=== PATIENT | male | born 1975 | race Caucasian/White ===

== ENCOUNTER 2022-05-02 11:07 | Observation (INO) | payer OTHER, SELFPAY ==
[2022-05-02] VITALS (31 sets, daily range): BP systolic 135–166; BP diastolic 78–114; PULSE 74–123; RESP 10–22; TEMP 36.6–36.9; O2SAT 89–100; BMI 37.6
--- NOTE | 2022-05-02 | ECHO_ITS ---
Patient Info Name: Zackery Rod Age: 47 years : 1975 Gender: Male Ht: 72 in Wt: 224 lbs BSA: 2.30 m2 HR: 117 bpm BP: 149 / 99 mmHg Heart Rhythm: Sinus Rhythm Technical Quality: Fair Exam Date: 05/02/2022 1:20 PM Exam Location: [facility] Pulmonary Patient Status: Emergency Admit Date: 05/02/2022 Staff Ordering Physician: Lorene Vick NP Pick Up: Kelli Gutierrez RDCS Attending Provider: Nader Guevara APRN Referring Physician: Nava PIÑA; Exam Type: CA echo dop color flow w con Study Info Indications - q waves on ekg Complete two-dimensional, color flow and Doppler transthoracic echocardiogram is performed with contrast to opacify the left ventricle and to improve the deliniation of the left ventricle endocardial borders. Contrast/Agitated Saline Contrast/Ag. Saline: Definity Amount: 3.00 ml Administered By: Kelli Gutierrez RDCS Existing IV Access: Yes IV Access Condition: patent with no signs of infiltration Summary 1. Normal left ventricular size and contractility. 2. No regional wall motion abnormalities. 3. Grade 1 diastolic noncompliance. 4. Mild left atrial enlarged. Left Ventricle Left ventricular chamber dimension is normal. Left ventricular systolic function is normal, estimated at 60-65%. The left ventricular diastolic function is grade I diastolic dysfunction. Right Ventricle Right ventricular chamber dimension is normal. Left Atria Left atrial chamber dimension is mildly enlarged. Right Atria Right atrial chamber dimension is normal. Aortic Valve The aortic valve is normal. Pulmonic Valve The pulmonic valve is not well visualized. Mitral Valve The mitral valve has normal leaflets. Tricuspid Valve The tricuspid valve leaflets are normal. Pericardium/Pleural The pericardium appears normal. Aorta The aortic root size at the sinus of Valsalva is normal. Left Ventricular Outflow Tract Name Value Normal LVOT 2D LVOT Diameter 2.01 cm LVOT Doppler LVOT Peak Velocity 106.12 cm/s LVOT Peak Gradient 5 mmHg LVOT Mean Gradient 2 mmHg LVOT VTI 17.38 cm LVOT VTI/AV VTI Ratio 0.85 LVOT Stroke Volume 55.22 ml LVOT CO 4.31 l/min LVOT CI 1.88 L/min/m2 Mitral Valve Name Value Normal MV Doppler MV Decel [place] 388.63 cm/s2 MV PHT 0 s MV Area (PHT) 5.69 cm2 4.00-5.00 MV Diastolic Function MV E Peak Velocity 51.82 cm/s
--- NOTE | ~2022-05-02 | XR_ITS ---
EXAMINATION: XR chest 2V 05/02/2022 11:35 INDICATION: Chest pressure PROCEDURE: 2 view chest COMPARISON: No prior studies for comparison. FINDINGS: The lungs are clear. The cardiomediastinal silhouette is within normal limits. There are no pleural effusions. There is no pneumothorax suspected. IMPRESSION: 1: NO ACUTE CARDIOPULMONARY DISEASE. Reviewed, dictated and finalized at location A.
--- NOTE | ~2022-05-02 | NM_ITS ---
EXAMINATION: NM oni stress w perfusion DATE: 05/03/2022 14:59 INDICATION: Chest pain TECHNIQUE: Rest images were obtained following intravenous administration of 9.3 mCi Tc99m tetrofosmi n (Myoview). The patient was infused intravenously with Lexiscan (Regadenoson). Then, 27.7 mCi Tc99m tetrofosmin (Myoview) was administered intravenously, and stress images were obtained. Data was recon structed into short axis and horizontal and vertical long axis SPECT images. Gated SPECT images were also obtained. COMPARISON: None. FINDINGS: There is no definite reversible or fixed perfusion abnormality to suggest ischemia or infar ction. There is normal left ventricular chamber size, wall motion and ejection fraction. Left ventr icular ejection fraction measures >70%. IMPRESSION: 1. Normal myocardial perfusion at rest and during stress. 2. Left ventricular ejection fraction measuring >70%. Reviewed, dictated and finalized at location A.
--- NOTE | 2022-05-02 11:11 | ECG_ITS ---
Measurements Intervals [place] Rate: 85 P: 38 MI: 192 QRS: -4 QRSD: 106 T: 17 QT: 358 QTc: 427 Interpretive Statements SINUS RHYTHM DELAYED PRECORDIAL R/S TRANSITION CONSIDER INFERIOR INFARCT, AGE INDETERMINATE BASELINE ARTIFACT- I, II, III, AVR, AVL, V1 ABNORMAL ECG Electronically Signed On 05-02-2022 12:10:29 CDT by Haresh Weaver D.O.
--- NOTE | 2022-05-02 11:23 | ED.CHESTPAIN ---
HPI - Chest Pain General Chief Complaint: Chest Pain Stated Complaint: chest pressure since saturday Time Seen by Provider: 05/02/22 11:20 History of Present Illness HPI narrative: 47-year-old male presents to the emergency room for evaluation of left-sided chest pressure that he has intermittently had since Saturday. Patient states he develops a light chest pressure daily, lasts about 1 to 2 hours. Pain usually starts when he is at rest and is not exacerbated by any outside forces. Patient denies any shortness of breath or difficulty breathing. Patient denies taking any medications to alleviate his symptoms. Patient denies any near syncope, nausea or vomiting or radiating pain. Related Data Home Medications Medication Instructions Recorded Confirmed metformin 1,000 mg tablet tablet 2XD 05/02/22 metoprolol tartrate 50 mg tablet tablet 2XD 05/02/22 quinapril 20 tablet 1XD 05/02/22 mg-hydrochlorothiazide 25 mg tablet semaglutide 0.25 mg or 0.5 mg (2 ea subcut WEEKLY 05/02/22 mg/1.5 mL) subcutaneous pen injector ([employer]) Allergies Allergy/AdvReac Type Severity Reaction Status Date / Time No Known Allergies Allergy Verified 05/02/22 11:31 Review of Systems Review of Systems: CONSTITUTIONAL: Denies fever, chills, or sweats. EYES: Denies visual changes, redness, or discharge. ENT: Denies rhinorrhea, congestion, sore throat, or otalgia. CARDIOVASCULAR: Reports chest pressure RESPIRATORY: Denies cough or dyspnea. GASTROINTESTINAL: Denies abdominal pain, nausea, vomiting, or diarrhea. GENITOURINARY: Denies dysuria or hematuria. SKIN: Denies rash or itching. MUSCULOSKELETAL: Denies back pain, joint pain, or myalgia. NEUROLOGIC: Denies headache, numbness, dizziness, or weakness. PSYCHIATRIC: Denies anxiety or depression. Exam Narrative: GENERAL: Well-appearing, well-nourished, no physical limitations, and in no acute distress. HEAD: Normocephalic, atraumatic. EYES: Conjunctivae normal, PERRLA and EOMI. CHEST: Clear to auscultation. No respiratory distress. No wheezes rales or rhonchi. No tenderness. HEART: Regular rate and rhythm. No murmur heard. Normal peripheral pulses. BACK: No CVA tenderness; No cervical/thoracic/lumbar tenderness, step-offs, bony abnormality; FROM EXTREMITIES: Normal range of motion. No edema. No clubbing or cyanosis SKIN: Warm, dry, no rash. No noted wounds NEURO: No focal deficits. Alert and oriented x3. MAEW. CN's II-XI intact bilaterally, normal gait PSYCH: Cooperative. Normal mood and affect. Course Vital Signs Vital signs: Vital Signs Temperature 36.8 C 05/02/22 11:09 Pulse Rate 81 05/02/22 11:09 Respiratory Rate 18 05/02/22 11:09 Blood Pressure 160/96 H 05/02/22 11:09 Pulse Oximetry 100 05/02/22 11:09 Temperature 36.6 C 05/02/22 11:14 Pulse Rate 117 H 05/02/22 11:14 Respiratory Rate 18 05/02/22 11:14 Blood Pressure 159/100 H 05/02/22 11:14 Pulse Oximetry 98 05/02/22 11:26 Oxygen Delivery Room Air 05/02/22 11:26 MDM - Chest Pain MDM Narrative Medical decision making narrative: 47-year-old male presented the emergency room for evaluation of chest pain. Exam shows no evidence of volume overload. EKG shows no signs of acute ischemia however it does show an old injury in the inferior leads. Initial troponin was negative. Chest x-ray shows no evidence of pneumothorax, or pneumonia. Heart score is a 5, so plan to admit patient for patient Lab Data Result diagrams: 05/02/22 11:22 05/02/22 11:22 Labs: Lab Results 05/02/22 05/02/22 05/02/22 Range/Units 11:21 11:22 11:22 WBC 8.2 (4.5-10.0) K/mm3 RBC 5.45 (4.6-6.20) M/mm3 Hgb 15.4 (14.0-18.0) g/dL Hct 45.0 (42.0-52.0) % MCV 82.6 (80-100) fl MCH 28.3 (26-34) pg MCHC 34.2 (32-36) g/dl RDW 12.5 (11.5-14.5) % Plt Count 277 (150-375) k/mm3 MPV 8.8 (7.4-10.4) fl Immature Gran % (Auto) 0.2 (0-0.5)
[2022-05-02 11:26] LABS: Basophils Absolute Auto 0.1 K/mm3 (0.0-0.1); Basophils Percent Auto 0.6 % (0.2-1.2); Eosinophils Absolute Auto 0.3 K/mm3 (0-0.3); Eosinophils Percent Auto 3.5 % (0-4.4); Hemoglobin 15.4 g/dL (14.0-18.0); Immature Granulocyte Absolute 0.02 K/mm3 (0.00-0.031); Immature Granulocyte Percent A 0.2 % (0-0.5); Lymphocytes Absolute Auto 2.56 K/mm3 (0.9-3.2); Lymphocytes Percent Auto 31.1 % (18.3-44.2); Mean Corpuscular HGB Conc 34.2 g/dl (32-36); Mean Corpuscular Hemoglobin 28.3 pg (26-34); Mean Corpuscular Volume 82.6 fl (80-100); Mean Platelet Volume 8.8 fl (7.4-10.4); Monocytes Absolute Auto 0.5 K/mm3 (0.1-0.6); Monocytes Percent Auto 6.4 % (2.6-8.5); Neutrophils Absolute Auto 4.8 K/mm3 (1.3-6.7); Neutrophils Percent Auto 58.2 % (45.5-73.1); Platelet Count Result 277 k/mm3 (150-375); Red Blood Count 5.45 M/mm3 (4.6-6.20); Red Cell Distribution Width 12.5 % (11.5-14.5); White Blood Count 8.2 K/mm3 (4.5-10.0)
[2022-05-02 11:36] LABS: Alanine Aminotransferase 51 U/L (6-50); Alkaline Phosphatase 85 U/L (38-126); Anion Gap 10 mmol/L (8-16); Aspartate Amino Transferase 36 U/L (17-59); Bilirubin,Total 0.6 mg/dL (0.2-1.3); Blood Urea Nitrogen 11 mg/dL (9-20); Calcium 9.4 mg/dL (8.4-10.2); Carbon Dioxide 27 mmol/L (22-30); Chloride 98 mmol/L (98-107); Estimated CRCL calculation 136 ml/min; Estimated Glomerular Filt Rate > 60; Glucose 125 mg/dL (65-110); Lipase 185 U/L (23-300); Potassium 3.5 mmol/L (3.4-5.0); Sodium 135 mmol/L (137-145)
[2022-05-02 11:37] LABS: INR 0.9; Prothrombin Time 11.9 Seconds (11.1-14.7)
[2022-05-02 11:38] LABS: Partial Thromboplastin Time 27.9 SECONDS (22.3-36.8)
[2022-05-02 11:47] LABS: Troponin I < 0.012 ng/mL (0.000-0.034)
[2022-05-02] MEDS: ASPIRIN 81 MG CHEWABLE TABLET 324 MG PO (11:52)
--- NOTE | 2022-05-02 13:01 | PM.IMHP ---
H&P: HPI History of Present Illness Date/Time: 05/02/22 12:40 Chief Complaint: Chest pain Narrative: This is a 47-year-old male patient who has a history of hypertension, hyperlipidemia, obesity, and diabetes. The patient stated he was recently switched to a different cholesterol medicine however due to insurance reasons he was not able to get it. The patient stated that his father at the age of 53 from a heart attack. The patient stated that his chest pain started this past Saturday and comes and goes. He states that it feels like a pressure to the left upper chest it does not radiate up his neck or down his arm. He denied any nausea or vomiting. He denied any fever chills or cough. His chest pressure usually last 1-2 hours. Patient did not taken aspirin at home. He has not had any previous stress test or cardiac catheterization. He states that the discomfort improves when he lays down. When he gets up and walks he become short of breath and has a chest pain. His blood pressure is elevated today and he stated that he did take his blood pressure medicine. He stated that is usually under control. He also stated that his diabetes is usually under control and that his last A1c was around 7 something. He does not have a insurance job titles. The patient is being admitted to observation status on the date of service of 05/02/2022. Review of Systems Review of Systems: All systems reviewed & are unremarkable except as noted in HPI and below Constitutional: Constitutional: Reports as per HPI and Reports no additional constitutional complaints Eyes: Eyes: Reports as per HPI and Reports no additional eye complaints ENT: Reports system reviewed and no additional complaints, except as documented and Reports Normal hearing present Cardiovascular: Cardiovascular: Reports no additional cardiovascular complaints Respiratory: Respiratory: Reports no additional respiratory complaints and Reports no additional respiratory complaints Gastrointestinal: Gastrointestinal: Reports as per HPI and Reports no additional gastrointestinal complaints Musculoskeletal: Musculoskeletal: Reports no additional musculoskeletal complaints Integumentary/Breasts: Skin/Breast: Reports system reviewed and no additional complaints, except as docu and Reports as per HPI Neurologic: Reports system reviewed and no additional complaints, except as documented, Reports as per HPI and Reports Normal hearing present Psychiatric: Psychiatric: Reports no additional psychiatric complaints and Reports as per HPI Endocrine: Endocrine: Reports no additional endocrine complaints Hematologic/Lymphatic: Hematologic/Lymphatic: Reports no additional hematologic/lymphatic complaints Allergic/Immunologic: Allergic/Immunologic: Reports no additional allergic/immunologic complaints [facility] Family History Family History (Updated 05/02/22 @ 15:08 by Lorene Vick NP) Father Acute myocardial infarction Diabetes mellitus Mother Dementia Diabetes mellitus Social History Social History (Updated 05/02/22 @ 15:07 by Lorene Vick NP) Social History: The patient is single does not have any children. Patient works from home for [employer]. The patient desires to be a full code. The patient is single and lives home alone. He does not smoke or use alcohol. No illicit drugs. Code status full code Meds Home Medications and Allergies Home Medications Medication Instructions Recorded Confirmed Type metformin 1,000 mg tablet tablet 2XD 05/02/22 History metoprolol tartrate 50 mg tablet tablet 2XD 05/02/22 History quinapril 20 tablet 1XD 05/02/22 History mg-hydrochlorothiazide 25 mg tablet semaglutide 0.25 mg or 0.5 mg (2 ea subcut WEEKLY 05/02/22 History mg/1.5 mL) subcutaneous pen injector (Ozempic) Allergies Allergy/AdvReac Type Severity Reaction Status Date / Time No Known Allergies Allergy Verified 05/02/22 11:31 Vital Signs Vital
[2022-05-02] MEDS: METOPROLOL TARTRATE 50 MG TAB PO (13:10)
--- NOTE | 2022-05-02 13:17 | PC.NURSE ---
blood glucose was 141 at 1316
[2022-05-02 13:18] LABS: Glucose Point of Care 141 mg/dl (65-105)
[2022-05-02 13:39] LABS: SARS-CoV-2 RNA PCR Negative
[2022-05-02] MEDS: PERFLUTREN LIPID MICROSPHERES 1.5 ML VIAL DILUTED TO 10 ML TOTAL VOLUME IV PUSH (13:52)
--- NOTE | 2022-05-02 13:53 | IVDEFINITY ---
Prior to administration of IV Definity the patient was educated on the risks and benefits of the imaging enhancing agent including potential adverse side effects. The patient verbalized understanding. Allergies were verified. No exclusion criteria were identified and at least one of the following inclusion criteria were met: 1) physician request, 2) patient technically difficult to image (per the [place] [employer]ocardi[employer] guidelines of two or more segments not discernable within the apical view), or 3) questionable left ventricular function. ?
[2022-05-02 14:41] LABS: Troponin I < 0.012 ng/mL (0.000-0.034)
[2022-05-02 16:09] LABS: Glucose Point of Care 117 mg/dl (65-105)
[2022-05-02] MEDS: SODIUM CHLORIDE 0.9% IV 1,000 ML 125 ML IV CONT ×2 (16:52→20:55)
--- NOTE | 2022-05-02 17:20 | PC.NURSE ---
This patient, Zackery Rod, was admitted to IMU Room 213-01. Patient/family oriented to hospital policies and general routines including ID bracelet, bed and alarms, visiting hours, pain management, procedures, bathroom and other care routines, personal items, smoking policy, room service/diet, and visiting hours. Information on how to activate the Rapid Response Team has been discussed. Patient/Family are encouraged to report perceived risks to care and to ask questions if they do not understand what they are told or what they should do.
[2022-05-02 17:39] LABS: Troponin I < 0.012 ng/mL (0.000-0.034)
[2022-05-02 19:38] LABS: Glucose Point of Care 189 mg/dl (65-105)
[2022-05-02] MEDS: METOPROLOL TARTRATE 50 MG TAB BY MOUTH (20:55)
[2022-05-02] MEDS: ACETAMINOPHEN 325 MG TABLET 650 MG PO (23:39)
[2022-05-03] VITALS (13 sets, daily range): BP systolic 130–147; BP diastolic 82–93; PULSE 64–91; RESP 18–23; TEMP 36.2–36.9; O2SAT 95–99
[2022-05-03 05:37] LABS: Basophils Absolute Auto 0.1 K/mm3 (0.0-0.1); Basophils Percent Auto 0.7 % (0.2-1.2); Eosinophils Absolute Auto 0.4 K/mm3 (0-0.3); Eosinophils Percent Auto 4.9 % (0-4.4); Hematocrit 38.4 % (42.0-52.0); Immature Granulocyte Absolute 0.03 K/mm3 (0.00-0.031); Immature Granulocyte Percent A 0.4 % (0-0.5); Lymphocytes Absolute Auto 2.76 K/mm3 (0.9-3.2); Lymphocytes Percent Auto 36.4 % (18.3-44.2); Mean Corpuscular HGB Conc 33.9 g/dl (32-36); Mean Corpuscular Hemoglobin 28.2 pg (26-34); Mean Corpuscular Volume 83.3 fl (80-100); Mean Platelet Volume 8.9 fl (7.4-10.4); Monocytes Absolute Auto 0.5 K/mm3 (0.1-0.6); Monocytes Percent Auto 6.6 % (2.6-8.5); Neutrophils Absolute Auto 3.9 K/mm3 (1.3-6.7); Platelet Count Result 241 k/mm3 (150-375); Red Blood Count 4.61 M/mm3 (4.6-6.20); Red Cell Distribution Width 12.5 % (11.5-14.5); White Blood Count 7.6 K/mm3 (4.5-10.0)
[2022-05-03 05:53] LABS: Alanine Aminotransferase 42 U/L (6-50); Alkaline Phosphatase 63 U/L (38-126); Anion Gap 7 mmol/L (8-16); Aspartate Amino Transferase 32 U/L (17-59); Bilirubin,Total 0.6 mg/dL (0.2-1.3); Blood Urea Nitrogen 11 mg/dL (9-20); Calcium 8.5 mg/dL (8.4-10.2); Carbon Dioxide 26 mmol/L (22-30); Chloride 104 mmol/L (98-107); Estimated CRCL calculation 151 ml/min; Estimated Glomerular Filt Rate > 60; Glucose 110 mg/dL (65-110); Lipase 174 U/L (23-300); Magnesium 1.6 mg/dL (1.6-2.3); Potassium 3.4 mmol/L (3.4-5.0); Sodium 137 mmol/L (137-145)
[2022-05-03 07:15] LABS: Glucose Point of Care 141 mg/dl (65-105)
[2022-05-03] MEDS: SODIUM CHLORIDE 0.9% IV 1,000 ML 125 ML IV CONT (07:32)
[2022-05-03 07:58] LABS: Hemoglobin A1C 6.8 % (<5.7)
--- NOTE | 2022-05-03 08:02 | EST_ITS ---
Patient Info Name: Zackery Rod Age: 47 years : 1975 Gender: Male Ht: 72 in Wt: 224 lbs BSA: 2.30 m2 HR: 70 bpm BP: 136 / 94 mmHg Heart Rhythm: Sinus Rhythm Exam Date: 05/03/2022 1:12 PM Exam Location: [facility] Stress Patient Status: Inpatient Admit Date: 05/02/2022 Staff Ordering Physician: Gregorio La MD Attending Provider: Aliya Perera MD Exercise Technologist: Emeli Arcos, CT Nurse: edil street Exam Type: CA stress oni w NM Study Info Indications R07.9 - Chest pain, unspecified A regadenoson stress test was performed. Summary 1. Normal sinus rhythm - normal ECG. 2. No ST or T wave abnormalities after lexiscan injection. 3. Myocardial perfusion findings to be reported by radiology. Protocol: Lexiscan Stress ECG Details Stage: REST Duration (min): 0 min : 55 sec HR (bpm): 72 SBP (mmHg): 136 DBP (mmHg): 94 Stage: REST Duration (min): 21 min : 53 sec HR (bpm): 73 SBP (mmHg): 136 DBP (mmHg): 94 Stage: STAGE 1 Duration (min): 0 min : 59 sec HR (bpm): 96 SBP (mmHg): 133 DBP (mmHg): 97 Stage: RECOVERY Duration (min): 1 min : 0 sec HR (bpm): 103 SBP (mmHg): 133 DBP (mmHg): 97 Stage: RECOVERY Duration (min): 2 min : 0 sec HR (bpm): 99 SBP (mmHg): 133 DBP (mmHg): 97 Stage: RECOVERY Duration (min): 3 min : 0 sec HR (bpm): 94 SBP (mmHg): 137 DBP (mmHg): 88 Stage: RECOVERY Duration (min): 3 min : 1 sec HR (bpm): 94 SBP (mmHg): 137 DBP (mmHg): 88 Rest HR: 73 bpm Peak HR: 106 bpm Rest Sys BP: 136 mmHg Peak Sys BP: 137 mmHg Max Pred HR: 171 bpm % Max Pred HR: 62 % Target HR: 145 bpm Max RPP: 14,522 bpm*mmHg Total Time: 1 min : 0 sec Rest Spaulding BP: 94 mmHg Peak Spaulding BP: 88 mmHg Total Dose: 0.4 mg Resting ECG Normal sinus rhythm - normal ECG. Stress ECG No ST or T wave abnormalities after lexiscan injection. Report Signatures
--- NOTE | 2022-05-03 08:47 | PM.CNCAR ---
Assessment and Plan Assessment and plan (1) Chest pain: Code(s): R07.9 - Chest pain, unspecified Status: Acute Plan This is a 47-year-old man with intermittent nonexertional chest discomfort for 3 or 4 days the symptoms are on the surface atypical of angina but are occurring in the setting of multiple coronary risk factors including hypertension diabetes dyslipidemia and a family history of premature ischemic heart disease in his father. Patient is a lifelong nonsmoker. I reassured him that we do not have evidence that he has suffered a myocardial infarction at this time. An isolated Q-wave in lead 3 is not sufficient evidence to make this diagnosis in my opinion. Since an echocardiogram has been done I will review that shortly in the echo lab to determine if there are any wall motion abnormalities. A Lexiscan nuclear stress test has already been ordered for today which is reasonable. An exercise nuclear study would also be reasonable since he is a relatively young patient who should be able to exercise on the treadmill. None the less I will review the nuclear stress test findings after they are available and provide further recommendations. I did tell the patient of course if there are ischemic findings he will need to undergo an angiogram. Amor Fernandez MD [facility] History of Present Illness History of Present Illness Consult date/time: 05/03/22 08:47 Consult reason: chest pain Reason For Visit: Chest pain Narrative: This is a pleasant 47-year-old man I am seeing at the request of the hospitalist today because of some chest pain. He is not known to have coronary artery to problems prior to this. He came to the emergency room yesterday in the middle of the day because of some chest pain that was occurring off and on for about 3 or 4 days before coming in. He describes episodes of a pressure-like sensation in the center of the chest that is very mild and not associated with any other symptoms such as air hunger diaphoresis or nausea. There was no radiation of this symptom to any other location. He initially thought this represented dyspepsia and did take some an acids for a couple of times over the past weekend. When the symptoms continued to occur it concerned him a regarding his cardiac status and so he came into the emergency room yesterday he had an essentially unremarkable ER evaluation and was admitted to IMU. His electrocardiogram does not show any acute ST or T-wave abnormalities. There is an isolated Q-wave in lead 3 the patient states that someone in the emergency room told him that he had had a previous myocardial infarction. The patient did have a stat echocardiogram done yesterday which has yet to be read. I was not informed of the desire to have a stat echocardiogram read while I was here yesterday. His troponin levels are normal x3 sets. He does have a Lexiscan nuclear stress test ordered for today. He denies any exertional symptoms he is not experiencing palpitations orthopnea PND or lower extremity edema. Review of Systems Constitutional: Constitutional: Reports no additional constitutional complaints Eyes: Eyes: Reports no additional eye complaints ENT: Reports system reviewed and no additional complaints, except as documented Cardiovascular: Cardiovascular: Reports as per HPI Respiratory: Respiratory: Reports no additional respiratory complaints Gastrointestinal: Gastrointestinal: Reports no additional gastrointestinal complaints Musculoskeletal: Musculoskeletal: Reports no additional musculoskeletal complaints Integumentary/Breasts: Skin/Breast: Reports system reviewed and no additional complaints, except as docu Neurologic: Reports system reviewed and no additional complaints, except as documented Endocrine: Endocrine: Reports no additional endocrine complaints Hematologic/Lymphatic: Hematologic/Lymphatic: Reports no additional hematologic/lymphatic complaints Allergic/Immunologic:
[2022-05-03] MEDS: METOPROLOL TARTRATE 50 MG TAB BY MOUTH (09:42)
[2022-05-03] MEDS: hydroCHLOROthiazide 25 MG TABLET PO (09:42)
[2022-05-03] MEDS: ENOXAPARIN 40 MG/0.4 ML SYRINGE SUB-Q (09:43)
[2022-05-03] MEDS: lisinopriL 20 MG TABLET PO (09:43)
[2022-05-03] MEDS: ASPIRIN 81 MG ENTERIC TABLET PO (11:27)
[2022-05-03 12:11] LABS: Glucose Point of Care 110 mg/dl (65-105)
--- NOTE | 2022-05-03 12:14 | PC.NURSE ---
To NM for stress test via w/c accompanied by transporter
--- NOTE | 2022-05-03 17:26 | PM.DS ---
DS: Admitting Diagnosis Discharge Date 05/03/22 Admitting Diagnosis Chest pain DS: Discharge Diagnosis Discharge Diagnosis (1) Chest pain: Code(s): R07.9 - Chest pain, unspecified Status: Acute (2) Diabetes type 2, controlled: Code(s): E11.9 - Type 2 diabetes mellitus without complications Status: Acute (3) Dyslipidemia: Code(s): E78.5 - Hyperlipidemia, unspecified Status: Acute (4) Hypertension: Code(s): I10 - Essential (primary) hypertension Status: Acute DS: Summary Hospital Course Reason for hospitalization: 47yo male with DM, HTN and HLD here for chest pain. Please see H&P for details Hospital Course: Patient presents with intermittent chest pain. His multiple risk factors including family history. Blood pressure was elevated on admission at 160/96. Blood pressure improved with resuming his home medications. CBC was normal. PT and PTT were normal. Troponin was negative x3. ALT was slightly elevated at 51 but repeated normalized. LFTs otherwise normal. Lipase was normal. TSH was normal. Basic metabolic panel was normal. COVID was negative. Chest x-ray was clear. EKG showed normal sinus rhythm with poor R-wave progression and possible old inferior ME. echocardiogram shows normal LV size and contractility. No wall motion abnormalities. He did have grade 1 diastolic dysfunction. Patient was given aspirin. He was admitted to the IMU. He kept on telemetry. No significant dysrhythmias noted. He underwent a Lexiscan nuclear stress test which showed normal myocardial perfusion at rest and during stress. EF was greater than 70%. Patient overall did well related discharged home on 05/03/2022. Should be mentioned that his A1c was 6.8. He was also educated about the benefits of adhering to a healthy lifestyle Status at Discharge Cognitive/behavioral status at discharge: Stable Time Spent with Patient Time attestation: Total time spent providing and/or coordinating discharge services: 35 minutes Time spent: Greater than 30 minutes Exam Narrative: AF 98.5 130/88 91 20 98% ra Gen - NARD Chest - CTA bilaterally, nml RR CV - RRR S1/S2. Telemetry showing no significant dysrhythmias Abd - Soft, NT/ND, Positive BS Ext - No pedal edema Psych - Nml mood and affect Skin - Warm and dry DS: Data Data Completed and Pending Labs on day of discharge: Labs from last 24 hours 05/03/22 05/03/22 05/03/22 12:04 07:10 05:06 WBC RBC Hgb Hct MCV MCH MCHC RDW Plt Count MPV Immature Gran % (Auto) Neut % (Auto) Lymph % (Auto) [place] % (Auto) Eos % (Auto) Baso % (Auto) Lymph # (Auto) [place] # (Auto) Eos # (Auto) Baso # (Auto) Abs Immat Gran (auto) Absolute Neuts (auto) Absolute Nucleated RBC Nucleated RBC % Sodium Potassium Chloride Carbon Dioxide Anion Gap BUN Creatinine Estim Creat Clear Calc Estimated GFR Glucose POC Capillary Glucose 110 H 141 H Hemoglobin A1c 6.8 H Calcium Magnesium Total Bilirubin AST ALT Alkaline Phosphatase Troponin I Total Protein Albumin Lipase TSH (Reflex) 05/03/22 05/03/22 05/03/22 05:06 05:06 05:06 WBC 7.6 RBC 4.61 Hgb 13.0 L Hct 38.4 L MCV 83.3 MCH 28.2 MCHC 33.9 RDW 12.5 Plt Count 241 MPV 8.9 Immature Gran % (Auto) 0.4 Neut % (Auto) 51.0 Lymph % (Auto) 36.4 [place] % (Auto) 6.6 Eos % (Auto) 4.9 H Baso % (Auto) 0.7 Lymph # (Auto) 2.76 [place] # (Auto) 0.5 Eos # (Auto) 0.4 H Baso # (Auto) 0.1 Abs Immat Gran (auto) 0.03 Absolute Neuts (auto) 3.9 Absolute Nucleated RBC 0.0 Nucleated RBC % 0.0 Sodium 137 Potassium 3.4 Chloride 104 Carbon Dioxide 26 Anion Gap 7 L BUN 11 Creatinine 0.70 Estim Creat Clear Calc 151 Estimated GFR > 60 Glucose 110
[2022-05-03 21:24] LABS: Glucose Point of Care 173 mg/dl (65-105)
== END 2022-05-03 18:20 | disposition home or self-care (01) ==
LOC: ANHED 12:47 → ANHIMU 17:22
PROVIDERS: Emergency Medicine; Nurse Practitioner; Admitting Provider Family Medicine; Emergency Provider Nurse Practitioner Family; PCP Internal Medicine; Visit Provider Internal Medicine
DX: R07.9 Chest pain, unspecified (principal); R06.02 Shortness of breath; I10 Essential (primary) hypertension; E11.9 Type 2 diabetes mellitus without complications; E78.5 Hyperlipidemia, unspecified; Z68.37 Body mass index [BMI] 37.0-37.9, adult; Z79.84 Long term (current) use of oral hypoglycemic drugs; Z79.899 Other long term (current) drug therapy; Z20.822 Contact with and (suspected) exposure to COVID-19
CPT/HCPCS: 36415; 71046; 78452; 80053; 82948; 83036; 83690; 83735; 84443; 84484; 85025; 85610; 85730; 93005; 93017; 96361; 96372; 96374; 99285; A9270; A9502; C8929; C9803; G0378; J1650; J2785; J7030; Q9957; U0003; U0005